=== PATIENT | male | born 1930 ===

== ENCOUNTER 2018-01-22 13:47 | Outpatient (CLI) | payer OTHER ==
[~2018-01-22 13:47] MED LIST: CEFADROXIL500 MG PO
== END 2018-01-22 13:52 | disposition home or self-care (01) ==
LOC: MRI 13:47
DX: M54.2 Cervicalgia (principal); M62.838 Other muscle spasm
CPT/HCPCS: 72141

== ENCOUNTER 2018-03-06 13:49 | Outpatient (CLI) | payer OTHER | END 2018-03-06 14:54 | disposition home or self-care (01) | LOC: RAD 13:49 → RX STUDY 13:49 | DX: M54.2 Cervicalgia (principal) ==

== ENCOUNTER 2018-03-22 10:51 | Outpatient (CLI) | payer OTHER | END 2018-03-22 11:29 | disposition home or self-care (01) | LOC: NUCLEAR 10:51 | DX: I42.0 Dilated cardiomyopathy (principal) ==

== ENCOUNTER 2018-06-25 13:29 | Outpatient (CLI) | payer OTHER | END 2018-06-25 13:31 | disposition home or self-care (01) | LOC: RAD 13:29 | DX: I11.9 Hypertensive heart disease without heart failure (principal) ==

== ENCOUNTER 2021-07-17 09:01 | Outpatient (CLI) | payer OTHER | END 2021-07-17 09:12 | disposition home or self-care (01) | LOC: TOM 09:01 | PROVIDERS: ATTEND General Practice | DX: C64.1 Malignant neoplasm of right kidney, except renal pelvis (principal); R10.9 Unspecified abdominal pain; R10.2 Pelvic and perineal pain; K57.90 Diverticulosis of intestine, part unspecified, without perforation or abscess without bleeding; N40.0 Benign prostatic hyperplasia without lower urinary tract symptoms; I70.90 Unspecified atherosclerosis ==